=== PATIENT | female | born 1960 | race Caucasian/White ===

== ENCOUNTER → 2017-01-07 | Outpatient (CLI) | payer OTHER | LOC: BMCIMAGING 09:48 | PROVIDERS: ATTEND Physician Assistant | DX: M17.11 Unilateral primary osteoarthritis, right knee (principal); M23.41 Loose body in knee, right knee ==

== ENCOUNTER → 2017-04-12 | Outpatient (CLI) | payer OTHER | LOC: FIMAGING 13:56 | PROVIDERS: ATTEND Orthopaedic Surgery | DX: Z01.818 Encounter for other preprocedural examination (principal); M17.11 Unilateral primary osteoarthritis, right knee ==

== ENCOUNTER → 2017-04-19 | Outpatient (CLI) | payer OTHER | LOC: BMCIMAGING 08:08 | PROVIDERS: ATTEND Internal Medicine | DX: R16.0 Hepatomegaly, not elsewhere classified (principal); E66.9 Obesity, unspecified ==

== ENCOUNTER 2017-04-25 09:44 | Inpatient (IN) | payer OTHER ==
--- NOTE | 2017-04-25 06:42 | PDHPUP ---
History & Physical Update H&P update statement: This history and physical update is based on an assessment of the patient which was completed after admission or registration (within 24 hours), but prior to the surgery/procedure.
--- NOTE | 2017-04-25 06:42 | PDIAF ---
- Diagnosis Diagnosis: right knee djd Code Status: Full Code - Medication Management Discharge Medications: Medications to Continue on Transfer Aspirin [Aspirin 81mg (*)] 81 mg PO DAILY 03/27/17 [Last Taken Unknown] Fluticasone Hfa 110 Mcg [Flovent 110 MCG Hfa MDI (*)] 2 puffs IH BID 03/27/17 [ Last Taken Unknown] Lisinopril [Zestril 20 mg (*)] 20 mg PO DAILY 03/27/17 [Last Taken Unknown] Meloxicam [Mobic 7.5 mg] 7.5 mg PO DAILY 03/27/17 [Last Taken Unknown] PARoxetine HCL [Paxil 20mg (*)] 20 mg PO DAILY 03/27/17 [Last Taken Unknown] Discharge Medications: Refer to the Discharge Home Medication list for PRN reason. - Orders Services needed: Home Care, Physical Therapy Home Care Face to Face: I certify that this patient was under my care and that I had the required [id number] encounter meeting the encounter requirements on the discharge day. My findings support the fact that the patient is homebound as defined in Home Care Face to Face Continued: CMS Chapter 7 Medicare Benefits Manual 30.1.1 , The condition of the patient is such that there exists a normal inability to leave home and consequently, leaving home would require a considerable and taxing effort. Activity/Weight Bearing Restrictions: wbat. daily dressing changes. ice prn. martín hose x 2 weeks. f/u at two weeks as previously scheduled. aspirin 325 mg po daily for six weeks. seek attn for increasing pain, cp, sob, drainage. fevers or other focal complaints - Follow Up Care Current Providers and Referrals: Amanda Pang MD [Primary Care Provider] -
[~2017-04-25 09:44] MED LIST: ROPIVACAINE 0.2% 80 MG, EPINEPHrine 0.2 MG, KETOROLAC TROMETHAMINE 30 MG, morphINE 10 M... IU ONE; TRANEXAMIC ACID 1,000 MG in NS 100 ML IV ONE; VANCOMYCIN PHARMACY TO DOSE MISC ONE
[2017-04-25] MEDS ORDERED: ACETAMINOPHEN 325 MG TAB PO ONE (11:20)
[2017-04-25] MEDS ORDERED: FAMOTIDINE 20 MG TAB PO ONE (11:20)
[2017-04-25] MEDS ORDERED: LIDOCAINE 1% 2 ML INJ ID PRN (11:21)
[2017-04-25] MEDS ORDERED: LR 1,000 ML IV ONE (11:21)
[2017-04-25] MEDS: VANCOMYCIN 1.5 GM in D5W 250 ML IV ONE ×2 (11:59→12:18)
[2017-04-25] MEDS ORDERED: ceFAZolin 1 GM/5 ML SYR ONE (12:11)
[2017-04-25] MEDS ORDERED: CALCIUM CHLORIDE 1 GM/10 ML INJ ONE (12:11)
[2017-04-25] MEDS ORDERED: THROMBIN (BOVINE) 5,000 UNIT VIAL TP ONE (12:12)
[2017-04-25] MEDS ORDERED: MIDAZOLAM 2 MG/2 ML VIAL IVP ONE (12:14)
[2017-04-25] MEDS ORDERED: POLYMYXIN B SULFATE 500,000 UNIT/10 ML SYR IRR ONE (12:15)
[2017-04-25] MEDS ORDERED: BACITRACIN 50,000 UNITS/10 ML SYR IRR ONE (12:15)
[2017-04-25] MEDS ORDERED: ALBUTEROL 60 PUFFS/8 GM MDI IH PRN (12:16)
[2017-04-25] MEDS ORDERED: MIDAZOLAM 2 MG/2 ML VIAL ONE (12:16)
--- NOTE | 2017-04-25 12:17 | PDANEPAE ---
ANE History of Present Illness r knee oa ANE Past Medical History - Cardiovascular History Hx Hypertension: Yes Hx Arrhythmias: No Hx Chest Pain: No Hx Coronary Artery / Peripheral Vascular Disease: No Hx CHF / Valvular Disease: No Hx Palpitations: No Cardiovascular History Comment: well controlled - Pulmonary History Hx COPD: No Hx Asthma/Reactive Airway Disease: Yes Hx Recent Upper Respiratory Infection: No Hx Oxygen in Use at Home: No Hx Sleep Apnea: No Sleep Apnea Screening Result - Last Documented: Negative Pulmonary History Comment: asthma well controlled - Neurologic History Hx Cerebrovascular Accident: No Hx Seizures: No Hx Dementia: No - Endocrine History Hx Diabetes: No - Renal History Hx Renal Disorders: No - Liver History Hx Hepatic Disorders: No - Neurological & Psychiatric Hx Hx Neurological and Psychiatric Disorders: No Neurological / Psychiatric History Comment: "bulging disc"-no problems - Cancer History Hx Cancer: No - Congenital Disorder History Hx Congenital Disorders: No - GI History Hx Gastrointestinal Disorders: No - Other Health History Other Health History: OA R knee]. rash on face-tx w/antibx oral Rx - Chronic Pain History Chronic Pain: Yes (R knee) - Surgical History Prior Surgeries: wisdom teeth -MD's office ANE Review of Systems Review of Systems: - Exercise capacity METS (RN): 4 METS ANE Patient History - Allergies Allergies/Adverse Reactions: hydrochlorothiazide Allergy (Verified 03/28/17 11:34) Other-Enter Comments Penicillins Allergy (Verified 03/28/17 11:34) Hives - Home Medications Home Medications: Aspirin [Aspirin 81mg (*)] 81 mg PO DAILY 03/27/17 [Last Taken 04/15/17] Fluticasone Hfa 110 Mcg [Flovent 110 MCG Hfa MDI (*)] 2 puffs IH BID 03/27/17 [ Last Taken 04/25/17] Lisinopril [Zestril 20 mg (*)] 20 mg PO DAILY 03/27/17 [Last Taken 04/24/17] Meloxicam [Mobic 7.5 mg] 7.5 mg PO DAILY 03/27/17 [Last Taken 04/15/17] PARoxetine HCL [Paxil 20mg (*)] 20 mg PO DAILY 03/27/17 [Last Taken 04/24/17] amLODIPine BESYLATE [Norvasc 5 mg (*)] 5 mg PO DAILY 04/25/17 [Last Taken ] - NPO status NPO Since - Liquids (Date): 04/25/17 NPO Since - Liquids (Time): 08:00 NPO Since - Solids (Date): 04/24/17 NPO Since - Solids (Time): 19:00 - Smoking Hx Smoking Status: Former smoker - Family Anes Hx Family Hx Anesthesia Complications: none ANE Labs/Vital Signs - Vital Signs Vital Signs: reviewed preoperatively; see RN documention for details Blood Pressure: 153/93 Heart Rate: 85 Respiratory Rate: 15 O2 Sat (%): 93 Height: 154.94 cm Weight: 102.512 kg ANE Physical Exam - Airway Neck exam: FROM Mallampati Score: Class 1 Mouth exam: normal dental/mouth exam - Pulmonary Pulmonary: expiratory wheeze - Cardiovascular Cardiovascular: regular rate and rhythym - ASA Status ASA Status: II ANE Anesthesia Plan Anesthesia Plan: GA w LMA, spinal Regional Anesthesia: adductor canal FNB
[2017-04-25] MEDS ORDERED: PROPOFOL/EMULSION 500 MG/50 ML BOTTLE IV ONE (12:55)
[2017-04-25] MEDS ORDERED: fentaNYL 100 MCG/2 ML INJ ONE (12:55)
[2017-04-25] MEDS ORDERED: HYDROmorphONE/DILAUDID 1 MG/ML INJ IVP PRN (13:32)
[2017-04-25] MEDS ORDERED: NALOXONE HCL 0.4 MG/ML INJ IVP PRN (13:32)
[2017-04-25] MEDS ORDERED: fentaNYL 100 MCG/2 ML INJ IVP PRN (13:32)
[2017-04-25] MEDS ORDERED: PROMETHAZINE HCL 25 MG/ML INJ IVP PRN ×2 (13:32→14:15)
[2017-04-25] MEDS ORDERED: ONDANSETRON 4 MG/2 ML VIAL IVP PRN ×2 (13:32→14:15)
[2017-04-25] MEDS ORDERED: PHENYLEPHRINE HCL 100 MCG/ML SYR ONE (13:57)
[2017-04-25] MEDS ORDERED: POLYETHYLENE GLYCOL 3350 17 GM PKT PO PRN (14:15)
[2017-04-25] MEDS ORDERED: diphenhydrAMINE 25 MG CAP PO PRN (14:15)
[2017-04-25] MEDS ORDERED: MAGNESIUM HYDROXIDE 30 ML UDCUP PO PRN (14:15)
[2017-04-25] MEDS ORDERED: ONDANSETRON DISINTEGRATING 4 MG TAB PO PRN (14:15)
[2017-04-25] MEDS ORDERED: DIAZEPAM 5 MG TAB PO PRN (14:15)
[2017-04-25] MEDS ORDERED: BISACODYL 10 MG SUPP PR PRN (14:15)
[2017-04-25] MEDS ORDERED: TEMAZEPAM 15 MG CAP PO PRN (14:15)
[2017-04-25] MEDS ORDERED: DIPHENOXYLATE/ATROPINE LOMOTIL 1 TAB PO PRN (14:15)
[2017-04-25] MEDS ORDERED: METOCLOPRAMIDE 10 MG/2 ML VIAL IVP PRN (14:15)
[2017-04-25] MEDS ORDERED: LACTULOSE 20 GM/30 ML UDCUP PO PRN (14:15)
[2017-04-25] MEDS ORDERED: PROMETHAZINE HCL 25 MG SUPPR PR PRN (14:15)
[2017-04-25] MEDS ORDERED: PROPOFOL 200 MG/20 ML VIAL ONE (14:29)
[2017-04-25] MEDS ORDERED: ONDANSETRON 4 MG/2 ML VIAL ONE (14:29)
[2017-04-25] MEDS ORDERED: DEXAMETHASONE 4 MG/ML VIAL ONE (14:29)
[2017-04-25] MEDS ORDERED: LR 1,000 ML IV SCH (14:30)
--- NOTE | 2017-04-25 15:26 | POSTANESTH ---
Post Anesthetic Evaluation Cardiovascular Status: Normal, Stable Respiratory Status: Normal, Stable Level of Consciousness/Mental Status: Can Participate in Eval Pain Control: Adequate, Prn Tx Ordered Nausea/Vomiting Control: Adequate, Prn Tx Ordered Complications Possibly Related to Anesthesia: None Noted
[2017-04-25] MEDS: oxyCODONE IR 5 MG TAB PO PRN ×2 (17:51→23:48)
[2017-04-25] MEDS: ACETAMINOPHEN 325 MG TAB PO SCH ×2 (17:51→23:43)
[2017-04-25] MEDS ORDERED: VANCOMYCIN 1.5 GM in D5W 250 ML IV ONE (18:00)
[2017-04-25] MEDS: TRANEXAMIC ACID 650 MG TAB PO SCH ×2 (19:48→22:24)
[2017-04-25] MEDS: FLUTICASONE HFA 110 MCG MDI IH SCH (21:04)
[2017-04-25] MEDS: SENNOSIDES/DOCUSATE SODIUM TAB PO SCH (22:25)
[2017-04-25 23:33] VITALS: RESP 16
[2017-04-25] MEDS: ASPIRIN 325 MG TAB PO SCH (23:42)
[2017-04-25] MEDS: FAMOTIDINE 20 MG TAB PO SCH (23:44)
[2017-04-26 05:07] LABS: HEMATOCRIT 38.7 % (38.0-47.0); HEMOGLOBIN 13.1 g/dL (12.6-16.3)
[2017-04-26] MEDS: TRANEXAMIC ACID 650 MG TAB PO SCH (05:41)
[2017-04-26] MEDS: oxyCODONE IR 5 MG TAB PO PRN ×2 (05:42→09:48)
[2017-04-26] MEDS: ACETAMINOPHEN 325 MG TAB PO SCH (05:42)
--- NOTE | 2017-04-26 07:22 | PDIAF ---
- Diagnosis Diagnosis: right knee djd Code Status: Full Code - Medication Management Discharge Medications: Medications to Continue on Transfer Aspirin [Aspirin 81mg (*)] 81 mg PO DAILY 03/27/17 [Last Taken 04/15/17] Fluticasone Hfa 110 Mcg [Flovent 110 MCG Hfa MDI (*)] 2 puffs IH BID 03/27/17 [ Last Taken 04/25/17] Lisinopril [Zestril 20 mg (*)] 20 mg PO DAILY 03/27/17 [Last Taken 04/24/17] Meloxicam [Mobic 7.5 mg] 7.5 mg PO DAILY 03/27/17 [Last Taken 04/15/17] PARoxetine HCL [Paxil 20mg (*)] 20 mg PO DAILY 03/27/17 [Last Taken 04/24/17] amLODIPine BESYLATE [Norvasc 5 mg (*)] 5 mg PO DAILY 04/25/17 [Last Taken ] Aspirin [Aspirin 325 mg (*)] 325 mg PO DAILY tab 04/26/17 [Last Taken Unknown] oxyCODONE IR [Oxycodone Ir (*)] 5 - 10 mg PO Q3HRS PRN #90 tab 04/26/17 [Last Taken Unknown] Discharge Medications: Refer to the Discharge Home Medication list for PRN reason. - Orders Services needed: Home Care, Physical Therapy Home Care Face to Face: I certify that this patient was under my care and that I had the required [id number] encounter meeting the encounter requirements on the discharge day. My findings support the fact that the patient is homebound as defined in Home Care Face to Face Continued: CMS Chapter 7 Medicare Benefits Manual 30.1.1 , The condition of the patient is such that there exists a normal inability to leave home and consequently, leaving home would require a considerable and taxing effort. Diet Recommendation: no restrictions on diet Diet Texture: Regular Texture Diet Activity/Weight Bearing Restrictions: wbat. daily dressing changes. ice prn. martín hose x 2 weeks. f/u at two weeks as previously scheduled. aspirin 325 mg po daily for six weeks. seek attn for increasing pain, cp, sob, drainage. fevers or other focal complaints - Follow Up Care Current Providers and Referrals: Amanda Pang MD [Primary Care Provider] - Andrew Aviles MD [Medical Doctor] -
[2017-04-26 07:35] VITALS: PULSE 70; TEMP 98; O2SAT 98
--- NOTE | 2017-04-26 08:34 | PDIAF ---
- Diagnosis Diagnosis: right knee djd Code Status: Full Code - Medication Management Discharge Medications: Medications to Continue on Transfer Aspirin [Aspirin 81mg (*)] 81 mg PO DAILY 03/27/17 [Last Taken 04/15/17] Fluticasone Hfa 110 Mcg [Flovent 110 MCG Hfa MDI (*)] 2 puffs IH BID 03/27/17 [ Last Taken 04/25/17] Lisinopril [Zestril 20 mg (*)] 20 mg PO DAILY 03/27/17 [Last Taken 04/24/17] Meloxicam [Mobic 7.5 mg] 7.5 mg PO DAILY 03/27/17 [Last Taken 04/15/17] PARoxetine HCL [Paxil 20mg (*)] 20 mg PO DAILY 03/27/17 [Last Taken 04/24/17] amLODIPine BESYLATE [Norvasc 5 mg (*)] 5 mg PO DAILY 04/25/17 [Last Taken ] Aspirin [Aspirin 325 mg (*)] 325 mg PO DAILY tab 04/26/17 [Last Taken Unknown] oxyCODONE IR [Oxycodone Ir (*)] 5 - 10 mg PO Q3HRS PRN #90 tab 04/26/17 [Last Taken Unknown] Discharge Medications: Refer to the Discharge Home Medication list for PRN reason. - Orders Services needed: Home Care, Physical Therapy Home Care Face to Face: I certify that this patient was under my care and that I had the required [id number] encounter meeting the encounter requirements on the discharge day. My findings support the fact that the patient is homebound as defined in Home Care Face to Face Continued: CMS Chapter 7 Medicare Benefits Manual 30.1.1 , The condition of the patient is such that there exists a normal inability to leave home and consequently, leaving home would require a considerable and taxing effort. Diet Recommendation: no restrictions on diet Diet Texture: Regular Texture Diet Activity/Weight Bearing Restrictions: Straight leg immobilizer at all times , NO ROM . wbat. daily dressing changes. ice prn. martín hose x 2 weeks. f/ u at two weeks as previously scheduled. aspirin 325 mg po daily for six weeks. seek attn for increasing pain, cp, sob, drainage. fevers or other focal complaints - Follow Up Care Current Providers and Referrals: Amanda Pang MD [Primary Care Provider] - Andrew Aviles MD [Medical Doctor] -
[2017-04-26] MEDS ORDERED: LISINOPRIL 20 MG TAB PO SCH (09:00)
[2017-04-26] MEDS ORDERED: amLODIPine BESYLATE 5 MG TAB PO SCH (09:00)
[2017-04-26] MEDS ORDERED: PARoxetine HCL 20 MG TAB PO SCH (09:00)
[2017-04-26] MEDS: SENNOSIDES/DOCUSATE SODIUM TAB PO SCH (09:48)
[2017-04-26] MEDS: ASPIRIN 325 MG TAB PO SCH (09:49)
[2017-04-26] MEDS: FAMOTIDINE 20 MG TAB PO SCH (09:49)
[2017-04-26 09:55] VITALS: BP 102/74
[2017-04-26] MEDS: FLUTICASONE HFA 110 MCG MDI IH SCH (10:27)
--- NOTE | 2017-04-26 14:23 | ASMTCMCOM ---
CM Note CM Note Notes: Pt medically stable for d/c with [facility]. Address/phone confirmed. Orders to be obtained in [employer]. Date Signed: 04/26/2017 02:23 PM Electronically Signed By:NIK Cabrera
--- NOTE | 2017-04-26 14:24 | ASDISCHSUM ---
Discharge Information Plan Status:Home with Home Health Medically Cleared to Leave: Discharge Date:04/26/2017 01:07 PM CM D/C Disposition:Home Health Service ADT D/C Disposition:Home Health Service Projected Discharge Date:04/26/2017 11:00 AM Transportation at D/C: Discharge Delay Reason: Follow-Up Date:04/26/2017 11:00 AM Discharge Slot: Final Diagnosis: Placement Information Referral Type:*Home Health Care Services Referral ID:[id number] Provider Name:[facility] [address] Address 2: City:[place] Selection Factors: State:[place] Patient Contact Information Contact Name:MELITASINA Relationship:Mother Address:[address] Work Phone: City:[place] Alternate Phone: [facility]/Zip Code:[place] [address] Email: Financial Information Financial Class:[facility] Primary Plan Desc:[employer] OPEN [employer] LOCAL Primary Plan Number:[id number] Secondary Plan Desc: Secondary Plan Number: Assessment Information [facility] CM Progress Note CM Note CM Note Notes: Pt medically stable for d/c with [facility]. Address/phone confirmed. Orders to be obtained in [employer]. Date Signed: 04/26/2017 02:23 PM Electronically Signed By:NIK Cabrera Intervention Information
--- NOTE | 2017-04-26 17:52 | GDS ---
[f rep st] DISCHARGE SUMMARY ADMIT DIAGNOSIS: Right knee degenerative joint disease. DISCHARGE DIAGNOSIS: Right knee degenerative joint disease. PROCEDURE: Right total knee arthroplasty. HISTORY OF PRESENT ILLNESS: The patient is a 56-year-old woman who has end-stage arthritis to her [facility] knee. Clinical and radiographic features are consistent with end-stage arthritis. She has faile d all attempts at conservative management. I have therefore recommended operative intervention. Jackelin coyne outlined the surgical procedure, risks, benefits, and alternatives. She wished to proceed. Writ wei consent was signed and placed in patient's chart. HOSPITAL COURSE: The patient was admitted to the hospital floor after total knee arthroplasty. Intr aoperatively she had a partial patellar tendon tear and was reconstructed using an allograft tendon. She was therefore placed into a straight leg immobilizer. Her postoperative course was otherwise un eventful. At time of discharge, she is tolerating an oral diet. Pain is well controlled on oral med icines. She is voiding without difficulty. Dressing is clean, dry, and intact. She has no calf swe lling or tenderness. Negative Homans bilaterally. X-rays demonstrate stable anatomic alignment. DISCHARGE ACTIVITY: She is weightbearing as tolerated with the brace locked in extension. No range of motion will be performed until 2 weeks. She is to shower with the brace. She may open the brace when she is in an extended position awake and supine. She is encouraged with ankle and calf range of motion and will follow up at 2 weeks for repeat evaluation. She should seek attention for increasin g pain, swelling, redness, or other focal complaints. DISCHARGE MEDICATIONS: Oxycodone 5 mg 1-2 every 4 hours p.r.n. pain, aspirin 325 mg p.o. daily for 6 weeks. /[id number]/MODL
--- NOTE | 2017-04-28 08:24 | GOP ---
[f rep st] OPERATIVE REPORT DATE OF OPERATION: 04/25/2017 SURGEON: Andrew Aviles MD ADMISSIONS MANAGER RN: Augie Ralph, rn surgical, who was medical necessity for the entirety of the case. A lso present was BALWINDER Stack. PREOPERATIVE DIAGNOSIS: Right knee degenerative joint disease. POSTOPERATIVE DIAGNOSIS: Right knee degenerative joint disease, plus patellar tendon partial tear. PROCEDURE PERFORMED: 1. Right total knee arthroplasty-MAKOplasty. 2. Patellar tendon repair with allograft. FINDINGS: DESCRIPTION OF PROCEDURE: The patient was identified in the preanesthesia area. The right knee lit rly demarcated as the operative site with indelible marker. She was given 2 g of Ancef intravenously en route to the operative suite. In the OR, general endotracheal anesthesia was administered. She was positioned in the supine position. All bony prominences were well padded, including the use of a bump beneath her right hip. The right lower extremity was sterilely prepped and draped in usual fas hion. Appropriate time-out procedure was carried out. The limb was exsanguinated with an Esmarch ba ndage and tourniquet inflated to 275 mmHg. Standard anterior midline incision was made. Thick subcu taneous flaps were elevated, followed by medial parapatellar arthrotomy. There were gross tricompart mental changes. Decision was made to proceed with a total knee replacement. The femoral pins were t hen placed in the incision on the proximal medial femur. A femoral checkpoint was placed. A separat e percutaneous incision was made across the distal ghosh and 2 pins were placed for the tibial referen ce array. A tibial check point was placed on the proximal tibia. The bony landmarks were all entere d into the computer in standard fashion. Appropriate manipulation of the components was facilitated with the software to an anatomic balanced knee. Using the MAKOplasty robot, resections were made acr oss the femur for a size 3 femur, size 2 tibia, and trial reduction was carried out. Appropriate fin was cut into the tibia for a press-fit tibial component, and a polyethylene spacer 2 x 11 mm thick w as ultimately selected. The knee was brought to full extension and flexion was stable through the fl exion/extension arc. The patella was cut in a freehand cutting technique and drill holes made for a press-fit patella size 32 mm. All trial components were withdrawn. In a sequential fashion the tibi al femoral components were pressed in into position and confirmed to be fully seated. A 2 x 11 mm th ick polyethylene spacer was placed and confirmed to be fully seated, and the patella was then myles sed with the patellar clamp to a fully seated position. The wound was copiously irrigated with pulsa tile lavage. The knee was brought to 20 degrees of flexion and the medial parapatellar arthrotomy wa s closed at this time. It was discovered a 60% tear of the distal patellar tendon over the medial as pect. This area was irreparable in a primary fashion. Therefore, an allograft posterior tibialis te ndon was obtained. This was sutured through a bone tunnel over the tibial tubercle and up through th e remaining patellar tendon. This was imbricated with #1 FiberWire and sewn to itself in a closed lo op across the anterior surface of the remaining patellar tendon. The remaining soft tissue was then closed through the medial parapatellar arthrotomy with #1 Ethibond. Two FiberTape sutures were also passed through the bone tunnel and patellar tendon to reinforce the allograft augmentation. This was taken through flexion and extension without disruption or separation of the patellar tendon repair. The subcutaneous tissue was closed using a 0 Quill and the skin was stapled. The margins were insti lled with a total of 30 cc of a joint cocktail of ropivacaine, morphine, Toradol, and epinephrine. S terile dressing was applied. The patient was placed into a knee immobilizer locked in extension. OPERATIVE INDICATIONS: The patient is a 56-year-old woman with end-stage arthritis to her right knee . Clinical and radiographic features are consistent with this. She has failed all attempts at conse rvative management. I recommended operative intervention. I have outlined the surgical procedure, r isks, benefits, and alternatives. She wished to proceed. Appropriate consent was signed and placed in patient's chart. TOTAL TOURNIQUET TIME: 65 minutes. COMPLICATIONS: The patellar tendon partial tear. DISPOSITION: To the recovery room, then the floor. She will be weightbearing as tolerated with the brace locked in extension. No range of motion will be performed until 2 weeks. She will then be all owed 0-30 degrees for an additional 2 weeks, then increasing by 30 degrees per week until full range of motion is achieved. IMPLANTS: The Triathlon PS femoral component, size 3. Tibial component size 2, tibial bearing inser t 2 x 11 mm thick and an A32 10 mm thickness metal-backed polyethylene patella. All components were press-fit. /[id number]/MODL
== END 2017-04-26 13:07 | disposition home health service (06) | DRG 470 ==
LOC: F3N 11:05
PROVIDERS: ADMIT Orthopaedic Surgery; ATTEND Orthopaedic Surgery
PROC: 0SRC0JZ Replacement of Right Knee Joint with Synthetic Substitute, Open Approach (ICD-10-PCS; principal; 2017-04-25 13:30)
PROC: 8E0Y0CZ Robotic Assisted Procedure of Lower Extremity, Open Approach (ICD-10-PCS; principal; 2017-04-25 13:30)
PROC: 0LU Tendons, Supplement (ICD-10-PCS; principal; 2017-04-25 13:30)
DX: M17.11 Unilateral primary osteoarthritis, right knee (principal); M67.861 Other specified disorders of synovium, right knee
CPT/HCPCS: 97116-GP; 97161-GP; 97165-GO; C1762; J0171; J1100; J1885; J2250; J2370; J2405; J2704; J2795; J3010; J3370

== ENCOUNTER → 2017-06-10 | Outpatient (CLI) | payer OTHER | LOC: BMCIMAGING 09:56 | PROVIDERS: ATTEND Physician Assistant | DX: Z47.1 Aftercare following joint replacement surgery (principal); Z96.651 Presence of right artificial knee joint ==

== ENCOUNTER → 2017-07-22 | Outpatient (CLI) | payer OTHER | LOC: BMCIMAGING 08:58 | PROVIDERS: ATTEND Physician Assistant | DX: Z47.1 Aftercare following joint replacement surgery (principal); Z96.651 Presence of right artificial knee joint ==

== ENCOUNTER → 2017-10-21 | Outpatient (CLI) | payer OTHER | LOC: BMCIMAGING 09:06 | PROVIDERS: ATTEND Physician Assistant | DX: Z47.1 Aftercare following joint replacement surgery (principal); Z96.651 Presence of right artificial knee joint; M25.461 Effusion, right knee ==

== ENCOUNTER → 2018-04-27 | Outpatient (CLI) | payer OTHER | LOC: BMCIMAGING 08:44 | PROVIDERS: ATTEND Orthopaedic Surgery | DX: Z96.651 Presence of right artificial knee joint (principal) ==